=== PATIENT | male | born 1985 ===

== ENCOUNTER 2020-04-22 00:37 | Emergency (ER) | payer SELFPAY ==
[2020-04-22] MEDS ORDERED: Dexamethasone 10 MG/ML VIAL ONE (01:12)
[2020-04-22] MEDS ORDERED: Ibuprofen 800 MG TAB ONE (01:34)
== END 2020-04-22 00:39 | disposition home or self-care (01) ==
LOC: ERS 00:37
DX: J02.8 Acute pharyngitis due to other specified organisms (principal); L73.9 Follicular disorder, unspecified; F17.210 Nicotine dependence, cigarettes, uncomplicated
CPT/HCPCS: 87081; 87430; 99283; J1100